=== PATIENT | female | born 1985 | race Caucasian/White ===

== ENCOUNTER 2023-07-19 11:51 | Emergency (ER) | payer SELFPAY ==
[2023-07-19 11:56] VITALS: BP 146/82
[2023-07-19 12:37] VITALS: BMI 34.1
--- NOTE | 2023-07-19 12:46 | ED.GENMED ---
History of Present Illness
<Radha Potter PA-C - Last Filed: 07/20/23 13:00>
General
Chief Complaint: Headache
Source: patient
Exam Limitations: none
Time Seen by Provider: 07/19/23 12:32
Nursing documentation reviewed up to this point in time: agreed with
Travel History
Have you had any contact with someone who has COVID-19?: No
Do you have any symptoms of coronavirus? Fever > 100 degrees, chills, cough, shortness of breath, sore throat, loss of taste or smell, muscle aches, or headache?: No
History of Present Illness
History of Present Illness:
Patient is a 38 year old female with history IIH presenting for evaluation of chronic headache. She reports a chronic headache 6/10 in severity in her left occipital scalp without any acute worsening. She states this is not the worst headache of
her life. Patient states that she has previously followed with a neurologist and had lumbar punctures performed to drain CSF fluid but stopped due to the uncomfortable nature of procedures and frequency that they were being done. She states that
she was scheduled to have a shunt placed prior to the start of COVID which she never had completed. She has not seen a neurologist in many years.
Patient was seen at [facility] this morning where she had requested that a CT scan be done to rule out emergent findings. She was given 1 mg Ativan and a dose of Tylenol and discharge.
At this point�patient endorses a mild headache without any visual symptoms. She denies any neck pain, back pain, fever, numbness/tingling, weakness. She states that she just wants to 'make sure nothing is going on up there 'in reference to her
head'
Phy Exam
<Radha Potter PA-C - Last Filed: 07/20/23 13:00>
Physical Exam
Physical Exam:
General: In no apparent distress, nontoxic appearing
Vitals: Mildly hypertensive, otherwise vital signs stable; afebrile
HEENT: Atraumatic, normocephalic; pupils equal round and reactive to light bilaterally, extraocular muscles intact, no visual field deficits, protecting airway, uvula midline
Neck: appears supple, no meningeal signs, trachea midline
CV: Regular rate rhythm, heart sounds normal no evidence of cyanosis
Resp: No evidence of respiratory distress, lungs clear
Abd: Non-distended
Extremities: No deformities, no evidence of cyanosis or edema; strength 5 out of 5 bilaterally in upper and lower extremities
Neuro: alert and oriented x [address] time, speech normal, no focal neurologic deficits, cranial nerves II through XII intact, normal finger-nose, sensation fully intact
Psych: Normal affect
Skin: Intact, no rashes
Course
<Radha Potter PA-C - Last Filed: 07/20/23 13:00>
Orders/Labs/Results
Orders:
Orders
07/19/23 13:39
Case Management Consult ONCE
Case Management Consult: Discharge Planning
Lorazepam [Ativan] 1 mg PO NOW STA
Vital Signs
Initial and Last Documented VS:
Initial Vital Signs
Temp Pulse Resp BP Pulse Ox
98.4 F 95 16 146/82 98
07/19/23 11:56 07/19/23 11:56 07/19/23 11:56 07/19/23 11:56 07/19/23 11:56
Last Documented Vital Signs
Temp Pulse Resp BP Pulse Ox
98.4 F 90 16 109/87 98
07/19/23 11:56 07/19/23 13:05 07/19/23 13:05 07/19/23 13:05 07/19/23 11:56
<Lana Johnson MD - Last Filed: 07/19/23 13:50>
Orders/Labs/Results
Orders:
Orders
07/19/23 13:39
Case Management Consult ONCE
Case Management Consult: Discharge Planning
Lorazepam [Ativan] 1 mg PO NOW STA
Vital Signs
Initial and Last Documented VS:
Initial Vital Signs
Temp Pulse Resp BP Pulse Ox
98.4 F 95 16 146/82 98
07/19/23 11:56 07/19/23 11:56 07/19/23 11:56 07/19/23 11:56 07/19/23 11:56
Last Documented Vital Signs
Temp Pulse Resp BP Pulse Ox
98.4 F 90 16 109/87 98
07/19/23 11:56 07/19/23 13:05 07/19/23 13:05 07/19/23 13:05 07/19/23 11:56
<aRdha Potter PA-C - Last Filed: 07/20/23 13:00>
MDM/Problems Addressed
Differential Diagnosis Includes:
Tension headache, migraine headache, hydrocephalus, idiopathic intracranial hypertension, mass, doubt intraparenchymal bleed
MDM/Problems Addressed:
Patient is a 38 year old female with history BIIH not currently receiving treatment presenting for evaluation of chronic dull headache and anxiety. No acute changes in quality/severity of headache. No new onset neurologic symptoms. Patient seen in
ER earlier today and received tylenol and ativan. She has stable vital signs here. She is in no apparent distress on my examination. There are no focal neurologic findings, visual shaffer intact. Discussed with patient regarding low utility of CT
exam with known BIIH. No indication of emergent codnition at this time.Stressed importance of neurology/neurosurgery follow-up for further treatment. Given patient is uninsured - a case management consult was placed. Patient requesting medication
for anxiety and discharge. Will give 1mg ativan and plan for discharge with return precautions, neurology/neurosurgery follow-up. Patient comfortable with this plan.
Chronic conditions affecting care:
Idiopathic intracranial hypertension
Acute Exacerbation and/or Progression of Chronic Illness:
Headache
<Radha Potter PA-C - Last Filed: 07/20/23 13:00>
*Pulse Oximetry
Patient hypoxic: no
*EKG
Interpreted by ED Provider?: NA
*Career Services Director Interpretation
Rate: Career Services Director- N/A
*Critical Care Note
Total Time (30-74mins, 75-104mins- exclusive of procedures): Not Applicable
<Radha Potter PA-C - Last Filed: 07/20/23 13:00>
Patient Management
Discussion with other providers: Other (Case management consultation)
ED Attending Note
<Radha Potter PA-C - Last Filed: 07/20/23 13:00>
-
Portions of this chart may have been created with voice recognition software.� Occasional wrong word or��sound alike� substitutions may have occurred due to the inherent limitations of voice recognition software.
<Lana Johnson MD - Last Filed: 07/19/23 13:50>
ED Attending Note
Patient seen and examined by attending physician: Yes
I performed the substantive portion of visit, reviewed & personally made and approve the management plan that is documented in note by myself or SHAILESH.: Yes
ED Attending Note:
38 yr old female hx of BIIH, not getting tx (ex shunt ex LP's), says she wants a CT to r/o 'something ' in her head. Does report a gradual 5/10 L h/a, not worst of life, no sudden, no assoc neuro sxs. No visual field loss, no visual changes, no
diplplia, etc. On my exam,Neuro stable/intact, visual shaffer intact, no papilledema bilaterally. Pt suffers from anxiety, requesting med and d/c. No SI/HI. Given pt does not have insurnace, cm consult placed, will need outpt ns/neuro continued
eval. No findings/sxs at this tie to suggest imminent concerns re:dx of BIIH.
Discharge Plan
Departure
Patient Disposition: Home (Routine Discharge)
Date of Disposition: 07/19/23
Time of Disposition: 13:50
Patient with high blood pressure during this ER visit?: No
Condition: Good
Covid-19: Not Applicable
Discharge Problem:
Headache
Instructions: Headache, Adult (DC), Idiopathic Intracranial Hypertension (DC)
Prescriptions:
No Action
hydroxyzine HCl [Atarax] 50 mg Tablet
50 mg PO Q4HPRN PRN (Reason: .as directed)
BuSpar
1 tab PO BID
Patient Comments:
Pt has stopped this med as it wasn't helping
Zyprexa
1 tab PO HS
Patient Comments:
Pt has stopped taking this as it bothers her legs
Referrals:
Loree Lopez MD [Active] - Call in 1-3 days for appt
Akiko Ashford PA-C [Family Provider] -
Lexie Silver MD [Active] - Call in 1-3 days for appt
Activity Restrictions/Additional Instructions:
- Return to the emergency department with any severe headache, severe neck pain, high fevers, intractable vomiting, visual changes, numbness/tingling, weakness, altered mental status, worsening in current symptoms, or any other concerns
-As discussed�you need to follow-up with neurology/neurosurgery for further evaluation/management of this condition. You should try and call and get an appointment once you have acquired health insurance.
-You can take Tylenol as needed for pain
Interventions
Interventions:
*Risk Screen - Suicide Last Done: 07/19/23 11:56
*General Assessment Last Done: 07/19/23 11:56
*Neglect/Abuse Screening Last Done: 07/19/23 11:56
*ED COVID-19 Vaccine History Last Done: 07/19/23 12:38
*Nursing Disposition Last Done: 07/19/23 13:59
ED- Neurological Assessment Last Done: 07/19/23 12:39
Discharge Date and Time
Discharge Date/Time: 07/19/23 14:00
[2023-07-19 13:05] VITALS: BP 109/87
[2023-07-19] MEDS: ATIVAN 1 MG PO (13:44)
--- NOTE | 2023-07-19 13:54 | CM ---
CM reports that she is homeless and does not have insurance. CM provided patient with resources for a PCP and Patient financial assistance. Patient was appreciative. Patient father is available to provide a ride and housing. CM will continue to
follow as needed.
PLAN: Home with father.
== END 2023-07-19 14:00 | disposition home or self-care (01) ==
LOC: EMR 11:51
PROVIDERS: EMERGENCY PHYSICIAN Emergency Medicine; FAMILY PHYSICIAN Physician Assistant Medical
DX: R51.9 Headache, unspecified (principal); R03.0 Elevated blood-pressure reading, without diagnosis of hypertension; G93.2 Benign intracranial hypertension; F41.9 Anxiety disorder, unspecified
CPT/HCPCS: 99283

== ENCOUNTER 2024-02-29 17:24 | Emergency (ER) | payer OTHER, SELFPAY ==
[2024-02-29] MEDS: KETAMINE HCL 300 MG IM (17:40)
[2024-02-29 18:38] VITALS: BP 144/79
[2024-02-29 18:41] LABS: Hematocrit 36.8 % (37.0-47.0); Mean Corp Hgb Conc. 35.3 g/dL (33.0-37.0); Mean Corpuscular Volume 84.8 fL (81.0-99.0); Mean Platelet Volume 9.4 fL (7.4-10.4); Platelet Count 251 10^3/uL (130-400); Red Blood Cell Count 4.34 10^6/uL (4.20-5.40); Red Cell Dist. Width 12.6 % (11.5-14.5)
[2024-02-29 18:54] LABS: Chloride 106 mmol/L (98-107); Potassium 3.5 mmol/L (3.5-5.1); Sodium 147 mmol/L (135-145)
[2024-02-29 18:57] LABS: ALT (SGPT) 48 U/L (0-35); AST (SGOT) 39 U/L (14-36); Acetaminophen < 10 ug/ml (10-30); Albumin 4.5 g/dl (3.5-5.0); Alkaline Phosphatase 77 U/L (38-126); Blood Urea Nitrogen 16 mg/dl (7-17); Calcium 9.5 mg/dl (8.4-10.2); Carbon Dioxide 22 mmol/L (22-30); Glucose 78 mg/dl (70-99); Salicylate < 1.0 mg/dl (2.0-20.0); Total Bilirubin 0.6 mg/dl (0.2-1.3); eGFR > 60.00
[2024-02-29 19:00] LABS: Alcohol None Detected
--- NOTE | 2024-02-29 19:50 | ED.GENMED ---
History of Present Illness
<Conor Dykes MD - Last Filed: 03/02/24 08:08>
General
Chief Complaint: Crisis Evaluation
Source: patient
Exam Limitations: clinical condition
Time Seen by Provider: 02/29/24 17:33
Nursing documentation reviewed up to this point in time: agreed with
History of Present Illness
History of Present Illness:
Patient with history of schizophrenia, presents ED from [facility], secondary to medication noncompliance over the past 3 days, along with increased agitation. Upon arrival, patient is found to be agitated, uncooperative,
and exhibiting unsafe behavior, i.e. spitting at staff. Unable to obtain any further information at this time.
Review of Systems
<Conor Dykes MD - Last Filed: 03/02/24 08:08>
Review of Systems
Allergies reviewed?: Yes
Unable to obtain full review of systems at this time due to: due to acuity
All Other Systems: Not applicable
Phy Exam
<Conor Dykes MD - Last Filed: 03/02/24 08:08>
Physical Exam
Physical Exam:
Physical Exam
General: moderate distress, uncooperative. afebrile
Head: nc/at.
Neck: supple. no meningeal signs.
Heart: s1/s2 regular rate and rhythm, no murmur. equal radial pulses.
Lungs: no acute respiratory distress. clear bilaterally
Abdomen: no distention. normal BS.
Neuro: alert and awake. no focal neurological deficits
Skin: no rash
Psychiatric: agitated, uncooperative
Extremities: no edema.
Course
<Conor Dykes MD - Last Filed: 03/02/24 08:08>
Orders/Labs/Results
Orders:
Orders
02/29/24 17:36
Ketamine Concentrate Injection [Ketamine HCl] 300 mg IM NOW STA
02/29/24 17:38
Ketamine Concentrate Injection [Ketamine HCl] 500 mg .ROUTE .STK-MED ONE
02/29/24 18:03
1:1 Observation - Suicide/ Violent Behavior As Directed
1:1 Observation - Suicide/ Violent Behavior As Directed
Test Result ONCE
02/29/24 18:09
Crisis Consult Urgent
Reason for Consult: manic behavior
02/29/24 18:32
Acetaminophen Urgent
Alcohol Urgent
Complete Blood Count/No Diff Urgent
Comprehensive Metabolic Panel Urgent
HCG, Serum Qualitative Screen Urgent
Comment: ADDON
Salicylate Urgent
02/29/24 22:00
Restraints - Violent As Directed
Restraint Type-: Soft Limb-4 point/4 rails
Apply From (date): 02/29/24
Apply from (time): 18:03
Remove (date): 02/29/24
Remove (time): 22:03
02/29/24 23:33
Haloperidol Lactate [Haldol] 5 mg IM NOW STA
02/29/24 23:39
Haloperidol Lactate [Haldol] 5 mg .ROUTE .STK-MED ONE
03/01/24 01:13
Ketamine Concentrate Injection [Ketamine HCl] 300 mg IM NOW STA
03/01/24 02:00
Restraints - Violent As Directed
Restraint Type-: Locked-4 point/4 rails
Apply From (date): 03/01/24
Apply from (time): 02:29
Remove (date): 03/01/24
Remove (time): 06:29
03/01/24 02:30
1:1 Observation - Suicide/ Violent Behavior As Directed
03/01/24 06:37
1:1 Observation - Suicide/ Violent Behavior As Directed
03/01/24 09:01
Olanzapine [Zyprexa] 10 mg IM NOW STA
03/01/24 10:00
Clonidine [Catapres] 0.1 mg PO BID
Gabapentin [Neurontin] 400 mg PO TID
Oxcarbazepine [Trileptal] 300 mg PO DAILY
Topiramate [Topamax] 25 mg PO BID
03/01/24 10:58
PSYCHIATRY CONSULT Urgent
Consulting Provider: Dov Johnson
Was physician already notified: Yes
Reason for consult: 302
03/01/24 12:50
1:1 Observation - Suicide/ Violent Behavior As Directed
Restraints - Violent As Directed
Restraint Type-: Soft Limb-L&R Ankle/4rail
Apply From (date): 03/01/24
Apply from (time): 12:50
Remove (date): 03/01/24
Remove (time): 16:50
03/01/24 14:44
Lorazepam [Ativan] 1 mg PO Q4HPRN PRN
03/01/24 14:59
Add On- LAB Urgent
Tests Added?: Vitamin D, 25-OH
03/01/24 15:01
Add On- LAB Urgent
Tests Added?: qualitative hcg
03/01/24 15:04
CT Head W/o Iv Contrast Urgent
Comment:
Reason For Exam: altered, confused
03/01/24 17:23
Lorazepam [Ativan] 2 mg IM NOW STA
03/01/24 18:32
Vitamin D, 25-Oh Urgent
03/01/24 20:00
Acetazolamide [Diamox] 250 mg PO BID
Olanzapine [Zyprexa] 10 mg PO BID
03/01/24 22:00
Diphenhydramine [Benadryl] 50 mg PO HS
Melatonin 5 mg PO HS
Oxcarbazepine [Trileptal] 600 mg PO HS
Abnormal Lab Results
02/29/24 03/01/24
18:32 18:32
Hct 36.8 L %
(37.0-47.0)
Sodium 147 H mmol/L
(135-145)
AST 39 H U/L
(14-36)
ALT 48 H U/L
(0-35)
Vitamin D 25-Hydroxy 29.4 L ng/mL
(30-80)
Salicylates < 1.0 L mg/dl
(2.0-20.0)
Acetaminophen < 10 L ug/ml
(10-30)
02/29/24 18:32
02/29/24 18:32
Vital Signs
Initial and Last Documented VS:
Initial Vital Signs
Temp Resp BP
97.9 F 20 144/79
02/29/24 18:38 02/29/24 18:38 02/29/24 18:38
Last Documented Vital Signs
Temp Pulse Resp BP Pulse Ox
98 F 64 16 116/65 100
03/01/24 09:06 03/01/24 11:43 03/01/24 11:43 03/01/24 11:43 03/01/24 11:43
<Diamond Kaplan, DO - Last Filed: 03/01/24 06:19>
Orders/Labs/Results
Orders:
Orders
02/29/24 17:36
Ketamine Concentrate Injection [Ketamine HCl] 300 mg IM NOW STA
02/29/24 17:38
Ketamine Concentrate Injection [Ketamine HCl] 500 mg .ROUTE .STK-MED ONE
02/29/24 18:03
1:1 Observation - Suicide/ Violent Behavior As Directed
1:1 Observation - Suicide/ Violent Behavior As Directed
Test Result ONCE
02/29/24 18:09
Crisis Consult Urgent
Reason for Consult: manic behavior
02/29/24 18:32
Acetaminophen Urgent
Alcohol Urgent
Complete Blood Count/No Diff Urgent
Comprehensive Metabolic Panel Urgent
HCG, Serum Qualitative Screen Urgent
Comment: ADDON
Salicylate Urgent
02/29/24 22:00
Restraints - Violent As Directed
Restraint Type-: Soft Limb-4 point/4 rails
Apply From (date): 02/29/24
Apply from (time): 18:03
Remove (date): 02/29/24
Remove (time): 22:03
02/29/24 23:33
Haloperidol Lactate [Haldol] 5 mg IM NOW STA
02/29/24 23:39
Haloperidol Lactate [Haldol] 5 mg .ROUTE .STK-MED ONE
03/01/24 01:13
Ketamine Concentrate Injection [Ketamine HCl] 300 mg IM NOW STA
03/01/24 02:00
Restraints - Violent As Directed
Restraint Type-: Locked-4 point/4 rails
Apply From (date): 03/01/24
Apply from (time): 02:29
Remove (date): 03/01/24
Remove (time): 06:29
03/01/24 02:30
1:1 Observation - Suicide/ Violent Behavior As Directed
03/01/24 06:37
1:1 Observation - Suicide/ Violent Behavior As Directed
03/01/24 09:01
Olanzapine [Zyprexa] 10 mg IM NOW STA
03/01/24 10:00
Clonidine [Catapres] 0.1 mg PO BID
Gabapentin [Neurontin] 400 mg PO TID
Oxcarbazepine [Trileptal] 300 mg PO DAILY
Topiramate [Topamax] 25 mg PO BID
03/01/24 10:58
PSYCHIATRY CONSULT Urgent
Consulting Provider: Dov Johnson
Was physician already notified: Yes
Reason for consult: 302
03/01/24 12:50
1:1 Observation - Suicide/ Violent Behavior As Directed
Restraints - Violent As Directed
Restraint Type-: Soft Limb-L&R Ankle/4rail
Apply From (date): 03/01/24
Apply from (time): 12:50
Remove (date): 03/01/24
Remove (time): 16:50
03/01/24 14:44
Lorazepam [Ativan] 1 mg PO Q4HPRN PRN
03/01/24 14:59
Add On- LAB Urgent
Tests Added?: Vitamin D, 25-OH
03/01/24 15:01
Add On- LAB Urgent
Tests Added?: qualitative hcg
03/01/24 15:04
CT Head W/o Iv Contrast Urgent
Comment:
Reason For Exam: altered, confused
03/01/24 17:23
Lorazepam [Ativan] 2 mg IM NOW STA
03/01/24 18:32
Vitamin D, 25-Oh Urgent
03/01/24 20:00
Acetazolamide [Diamox] 250 mg PO BID
Olanzapine [Zyprexa] 10 mg PO BID
03/01/24 22:00
Diphenhydramine [Benadryl] 50 mg PO HS
Melatonin 5 mg PO HS
Oxcarbazepine [Trileptal] 600 mg PO HS
Abnormal Lab Results
02/29/24 03/01/24
18:32 18:32
Hct 36.8 L %
(37.0-47.0)
Sodium 147 H mmol/L
(135-145)
AST 39 H U/L
(14-36)
ALT 48 H U/L
(0-35)
Vitamin D 25-Hydroxy 29.4 L ng/mL
(30-80)
Salicylates < 1.0 L mg/dl
(2.0-20.0)
Acetaminophen < 10 L ug/ml
(10-30)
02/29/24 18:32
02/29/24 18:32
Vital Signs
Initial and Last Documented VS:
Initial Vital Signs
Temp Resp BP
97.9 F 20 144/79
02/29/24 18:38 02/29/24 18:38 02/29/24 18:38
Last Documented Vital Signs
Temp Pulse Resp BP Pulse Ox
98 F 64 16 116/65 100
03/01/24 09:06 03/01/24 11:43 03/01/24 11:43 03/01/24 11:43 03/01/24 11:43
<Conor Dykes MD - Last Filed: 03/02/24 08:08>
MDM/Problems Addressed
MDM/Problems Addressed:
Patient evaluated immediately upon arrival, secondary to increased agitation and behavior that was deemed to be unsafe for treating staff members. Decision made to administer ketamine IM for sedation. Afterwards, blood work performed and
peripheral IV established.
302 petition filed and upheld by me. Patient will require inpatient psychiatric evaluation and treatment.
Critical care statement: A total of 40 minutes of critical care time was provided for this patient. This includes management of unstable vital signs, evaluation of the patient at bedside, reviewing the patient's pertinent medical records, review of
old EKGs and review of pertinent medical records. This time with separate from time utilized to perform the aforementioned documented procedures
<Conor Dykes MD - Last Filed: 03/02/24 08:08>
*Critical Care Note
Total Time (30-74mins, 75-104mins- exclusive of procedures): Not Applicable
<Diamond Kaplan DO - Last Filed: 03/01/24 06:19>
Update Note
Update Note:
23:30 -schizophrenic patient under 302, and 4 point restraints. Patient had been given ketamine around 5:30 PM. Patient becoming increasingly agitated, spitting. Haldol ordered.
01:40 -patient had been more calm after Haldol, however again is agitated. Acutely psychotic without ability to verbally de-escalate. IM ketamine administered. Remains hemodynamically stable
-Diamond Kaplan, DO
ED Attending Note
<Conor Dykes MD - Last Filed: 03/02/24 08:08>
-
Portions of this chart may have been created with voice recognition software.� Occasional wrong word or��sound alike� substitutions may have occurred due to the inherent limitations of voice recognition software.
Discharge Plan
Departure
Patient Disposition: Psych Facility
Date of Disposition: 02/29/24
Time of Disposition: 19:55
Patient Status:: 302
Discharge Problem:
Schizophrenia
Prescriptions:
No Action
clonidine HCl 0.1 mg tablet
0.1 mg PO BID
diphenhydramine HCl 50 mg Capsule
50 mg PO HS
gabapentin 400 mg capsule
400 mg PO TID
olanzapine 10 mg Tablet
10 mg PO BID
topiramate 25 mg tablet
25 mg PO BID
oxcarbazepine 300 mg tablet
300 mg PO DAILY
oxcarbazepine 600 mg tablet
600 mg PO HS
Interventions
Interventions:
*Risk Screen - Suicide Last Done: 02/29/24 19:00
*General Assessment Last Done: 02/29/24 19:00
*Neglect/Abuse Screening Last Done: 02/29/24 19:00
ED- Fall Risk Assessment Last Done: 03/01/24 18:15
*ED COVID-19 Vaccine History Last Done: 02/29/24 19:00
*Nursing Disposition Last Done: 03/01/24 18:15
ED-Psychological Assessment Last Done: 02/29/24 19:00
Discharge Date and Time
Discharge Date/Time: 03/01/24 18:16
Print Language: AZERBAIJANI
[2024-02-29 20:05] VITALS: BP 132/63
[2024-02-29] MEDS: HALDOL 5 MG IM (23:53)
[2024-02-29 23:54] VITALS: BP 145/64
[2024-03-01] MEDS: KETAMINE HCL 300 MG IM (01:26)
--- NOTE | 2024-03-01 09:04 | ED.CRISIS ---
ED Crisis Note
ED Crisis Note
Subjective:
Patient agitated required several doses of sedatives overnight, under 302 was recently released from intermediate
Objective:
Agitated in restraints
Assessment/Plan:
Psychotic, from intermediate, old records have been requested, will restart her outpatient meds, try to get her out of restraints, disposition???
Awaiting psychiatric evaluation
[2024-03-01 09:06] VITALS: BP 134/82
[2024-03-01] MEDS: ZYPREXA 10 MG IM (10:18)
[2024-03-01] MEDS: TRILEPTAL 300 MG PO (10:19)
[2024-03-01] MEDS: CATAPRES 0.1 MG PO (10:19)
[2024-03-01] MEDS: NEURONTIN 400 MG PO (10:19)
[2024-03-01] MEDS: TOPAMAX 25 MG PO (10:19)
[2024-03-01 11:43] VITALS: BP 116/65
--- NOTE | 2024-03-01 14:45 | CON.MD ---
Consultation - Medical
-
patient seen chart reviewed. the patient was incapable of answering any questions reliably..except for her name. she is here [facility] filed a 302 petition alleging she was playing w feces and urine as well as menstrual blood. she was incoherent
mumbling material presumed to be delusional. she was given ketamine at admit and zyprexa and she is currently calm though disorganized and unable to engage. she was hosp on psych in january. she had been kicked out of dad's house where she was
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 she was dc later that month and stopped taking psych meds. med list as follows....clonidine o.1 mg bid gabapentin 400/3, lamictal 25 qd topamax 25.2
pantoprazole 40 mg for gerd melatonin 9 mg q hs olanzapine 20 q hs and trileptal 300/600. she was also taking diamos 250 mg bid for idiopathic intracranial hypertension. she has hx of papilledema.
past psych hx patient has been hospitalized several times in the past. dx schizophrenia
medical see above re idiopathic intracranial hypertension carpal tunnel asthma radiculopathy inc glucose empty sella syndrome hld gerd migraines overweight vit low in prior hosp records b12 nl labs i reviewed from prior hosp including cbc
metabolic profile b12 tsh all nl here sodium sl high sl elevation of lft's
substance abuse marijuana noted in urine when hospitalized psychiatrically otherwise not known
family hx not known
social hx she did reside w her father who evicted her
mse alert oriented to person only speech and thought process disorganized patient clearly delusional with described bizarre behaviors and intermittent agitation. insight and judgment lacking. patient able to provide no hx
dx schizophrenia see above re medical dx
plan resume current meds including diamox. ativan prn agitation. stopped topamax as it interacts w diamox and at that dose is unlikely to do much stopped lamictal at 25 mg also unlikely to do much and would focus on antipsychotics and getting her
to take them reliably. recheck vitamin d will speak with er doctor re need for imaging or consult given neuro dx will seek psych bed but it will be difficult to find a hospital that will take her.
[2024-03-01 16:11] LABS: HCG, Serum Qualitative Screen Negative
[2024-03-01] MEDS: NEURONTIN PO (16:12)
[2024-03-01 16:30] LABS: Vitamin D, 25-OH*** 29.4 ng/mL (30-80)
[2024-03-01] MEDS: ATIVAN 2 MG IM (17:30)
--- NOTE | 2024-03-01 17:30 | ED.CRISIS ---
ED Crisis Note
ED Crisis Note
Subjective:
Patient initially came in as acute psychosis. Patient seen by psychiatry. On my assessment, patient and not offering
Objective:
Sleeping comfortably. No acute distress
Assessment/Plan:
Given her history of pseudotumor cerebri, psychiatry did discuss further evaluation of this. Will obtain CT head. Crisis already tells me that patient accepted to mental health facility. Will attempt CT
== END 2024-03-01 18:16 ==
LOC: EMR 17:24
PROVIDERS: Emergency Medicine; CONSULT PHYSICIAN Psychiatry & Neurology Psychiatry; EMERGENCY PHYSICIAN Emergency Medicine
DX: F20.9 Schizophrenia, unspecified (principal); Z91.148 Patient's other noncompliance with medication regimen for other reason
CPT/HCPCS: 99291; 96372 ×5; 70450; 80053; 80143; 80179; 82077; 82306; 84703; 85027; J2358